=== PATIENT | male | born 1935 | race Caucasian/White ===

== ENCOUNTER 2016-06-03 20:36 | Emergency (ER) | payer MEDICARE, BC ==
[~2016-06-03 20:36] MED LIST: CIPRO 500MG TA500 MG PO; DUO-KAPS1 CAP PO; FOSAMAX70 MG PO; IBUPROFEN200 M1 PO; LEVOTHYROXIN0.075 MG PO; METOPROLOL TART25 MG PO; PERCOCET 325 MG1 TA2 PO; ST. JOSEPH81 M2 PO; ZESTRIL5 MG PO; ZOCOR40 MG PO
[2016-06-03] MEDS ORDERED: CIPRO250 M1 PO (20:53)
[2016-06-03] MEDS ORDERED: SENOKOT NATURA8.6 MG PO (20:54)
[2016-06-03] MEDS ORDERED: NORCO 325 MG-51 TA1 PO (20:55)
[2016-06-03] MEDS ORDERED: FLOMAX0.4 MG PO (20:55)
[2016-06-03 21:35] VITALS: BP 143/75
== END 2016-06-03 21:35 | disposition home or self-care (01) ==
LOC: ED 20:36
DX: R33.8 Other retention of urine (principal); Z98.890 Other specified postprocedural states

== ENCOUNTER → 2016-09-27 | Outpatient (CLI) | payer MEDICARE, BC ==
[~2016-09-27] MED LIST changes: +CIPRO250 M1 PO; +FLOMAX0.4 MG PO; +NORCO 325 MG-51 TA1 PO; +SENOKOT NATURA8.6 MG PO
== END ==
LOC: RAD 10:59
DX: Z13.820 Encounter for screening for osteoporosis (principal); M85.80 Other specified disorders of bone density and structure, unspecified site; M81.0 Age-related osteoporosis without current pathological fracture; M85.852 Other specified disorders of bone density and structure, left thigh; M85.851 Other specified disorders of bone density and structure, right thigh; M85.832 Other specified disorders of bone density and structure, left forearm

== ENCOUNTER 2017-05-07 08:01 | Emergency (ER) | payer MEDICARE, BC ==
[~2017-05-07] VITALS: Wt 60.6 kg
[~2017-05-07 08:01] MED LIST changes: +ACETAMINOPHEN-O1 TAB PO; -NORCO 325 MG-51 TA1 PO
[2017-05-07 08:37] LABS: HEMATOCRIT 37.9 % (42.0-52.0); HEMOGLOBIN 12.6 g/dL (13.5-18.0); MEAN CELL VOLUME 106 fl (78-100); MEAN CORPUSCULAR HEMOGLOBIN 35 pg (27-31); MEAN CORPUSCULAR HGB CONC 33 g/dL (33-37); MEAN PLATELET VOLUME 10.5 fl (7.4-10.4); PLATELET COUNT 175 K/mm3 (130-400); RED BLOOD COUNT 3.58 M/mm3 (4.20-5.60); RED CELL DISTRIBUTION WIDTH 19.9 % (11.5-14.5); WHITE BLOOD COUNT 18.1 K/mm3 (4.8-10.8)
[2017-05-07 09:04] LABS: LYMPHOCYTE 5 % (20-51); MONOCYTE 9 % (3-10); NEUTROPHILS 86 % (42-75)
[2017-05-07 09:12] LABS: ALBUMIN 3.5 g/dL (3.5-5.0); CALCIUM 8.8 mg/dL (8.4-10.2); TOTAL BILIRUBIN 1.9 mg/dL (0.2-1.3)
[2017-05-07] MEDS ORDERED: MIRALAX17 GM PO (11:36)
[2017-05-07 11:37] VITALS: BP 163/95
[2017-05-07 13:16] LABS: D-DIMER 0.64 mg/L FEU (0.15-0.50)
[2017-05-07 13:30] LABS: URINE APPEARANCE CLOUDY; URINE COLOR YELLOW; URINE PROTEIN(semi-quant) 2+ mg/dL (NEGATIVE)
[2017-05-07 13:31] LABS: URINE BILIRUBIN NEGATIVE (NEGATIVE); URINE BLOOD TRACE (NEGATIVE); URINE GLUCOSE NEGATIVE (NEGATIVE); URINE KETONE 2+ (NEGATIVE); URINE LEUKOCYTE ESTERASE 2+ (NEGATIVE); URINE NITRATE POSITIVE (NEGATIVE); URINE UROBILINOGEN 12 mg/dL (NORMAL)
[2017-05-07 13:32] LABS: URINE MUCUS PRESENT (NOT PRESENT)
== END 2017-05-07 12:14 | disposition short-term general hospital (02) ==
LOC: ED 08:01
PROVIDERS: Nurse Practitioner Primary Care
DX: J18.1 Lobar pneumonia, unspecified organism (principal); R06.03 Acute respiratory distress; R09.02 Hypoxemia; I25.10 Atherosclerotic heart disease of native coronary artery without angina pectoris; I10 Essential (primary) hypertension; E78.5 Hyperlipidemia, unspecified; E03.9 Hypothyroidism, unspecified; Z85.59 Personal history of malignant neoplasm of other urinary tract organ; Z95.1 Presence of aortocoronary bypass graft; Z79.82 Long term (current) use of aspirin; Z99.81 Dependence on supplemental oxygen; I48.91 Unspecified atrial fibrillation; R13.10 Dysphagia, unspecified; Z95.3 Presence of xenogenic heart valve
CPT/HCPCS: J1940; J1956; Q9967